=== PATIENT | male | born 2000 | race Caucasian/White ===

== ENCOUNTER 2018-02-03 23:02 | Emergency (ER) | payer OTHER ==
[2018-02-03 23:12] VITALS: BMI 23.5
--- NOTE | 2018-02-03 23:21 | PDOC ---
History of Present Illness - General History Source: Patient Exam Limitations: No Limitations - History of Present Illness Initial Comments: 02/04/18 00:13 Patient is a 17 year old male with no significant past medical history who presents to the ED with complaints of right arm pain that began earlier this evening. Patient reports being at work when he became angry, prompting him to punch a wall causing immediate pain. He reports experiencing associated symptoms of numbness in his second and third digit as, stating his arm feels weird up to the middle of his forearm. Patient reports experiencing associated symptoms of right sided abdominal pain that he states increased in intensity with inspiration, prompting him to come into the ED for further evaluation. As per patient's girlfriend, patient at [employer] recently after injuring his right arm. Denies chest pain, Sob. Denies nausea, vomiting. Denies contact with sick individuals, out of state travelling. Denies vision changes, head pain. Denies any other symptoms. Allergies: None Social history: Lives with parents. No smoking. No alcohol. No illicit drugs. Surgical history: None PMD: Not on staff <Yordan Foster - Last Filed: 02/04/18 00:13> <Amy Jaime - Last Filed: 02/04/18 20:49> - General Chief Complaint: Pain Stated Complaint: CHEST PAIN Time Seen by Provider: 02/03/18 23:20 Past History <Yordan Foster - Last Filed: 02/04/18 00:13> - Past Medical History COPD: No Other medical history: Pt denies - Suicide/Smoking/Psychosocial Hx Smoking History: Never smoked Have you smoked in the past 12 months: No Information on smoking cessation initiated: No Hx Alcohol Use: No Drug/Substance Use Hx: No Substance Use Type: None <Amy Jaime - Last Filed: 02/04/18 20:49> - Past Medical History Allergies/Adverse Reactions: Allergies Allergy/AdvReac Type Severity Reaction Status Date / Time No Known Allergies Allergy Verified 02/03/18 23:08 Review of Systems - Review of Systems Able to Perform ROS?: Yes Comments:: 02/04/18 00:13 GENERAL/CONSTITUTIONAL: No fever or chills. No weakness. HEAD, EYES, EARS, NOSE AND THROAT: No change in vision. No ear pain or discharge. No sore throat. CARDIOVASCULAR: No chest pain or shortness of breath. RESPIRATORY: No cough, wheezing, or hemoptysis. GASTROINTESTINAL: +Right sided abdominal pain. No nausea, vomiting, diarrhea or constipation. GENITOURINARY: No dysuria, frequency, or change in urination. MUSCULOSKELETAL: +Right sided hand pain. No joint or muscle swelling or pain. No neck or back pain. SKIN: No rash NEUROLOGIC: No headache, vertigo, loss of consciousness, or change in strength/ sensation. ENDOCRINE: No increased thirst. No abnormal weight change. HEMATOLOGIC/LYMPHATIC: No anemia, easy bleeding, or history of blood clots. ALLERGIC/IMMUNOLOGIC: No hives or skin allergy. <Yordan Foster - Last Filed: 02/04/18 00:13> *Physical Exam - Vital Signs Last Vital Signs Temp Pulse Resp BP Pulse Ox 98.4 F 104 H 20 141/86 98 02/03/18 23:09 02/03/18 23:09 02/03/18 23:09 02/03/18 23:09 02/03/18 23:09 - Physical Exam Comments: 02/04/18 00:15 GENERAL: Awake, alert, and fully oriented, in no acute distress HEAD: No signs of trauma EYES: PERRLA, EOMI, sclera anicteric, conjunctiva clear ENT: Auricles normal inspection, hearing grossly normal, nares patent, oropharynx clear without exudates. Moist mucosa NECK: Normal ROM, supple, no lymphadenopathy, JVD, or masses LUNGS: Breath sounds equal, clear to auscultation bilaterally. No wheezes, and no crackles HEART: Regular rate and rhythm, normal S1 and S2, no murmurs, rubs or gallops ABDOMEN: Soft, nontender, normoactive bowel sounds. No guarding, no rebound. No masses EXTREMITIES: +Right hand pain on palmar aspect proximal to second third digit with palpation. +Right flexion and extension with no pain. +Right hand lateral and medial movement with no pain. +Pronate and supinate arm with no pain. + Strength intact throughout. +Lumbrical all intact. Normal range of motion, no edema. No clubbing or cyanosis. No cords, erythema, or tenderness NEUROLOGICAL: +reflexes intact. Cranial nerves II through XII grossly intact. Normal speech, normal gait SKIN: Warm, Dry, normal turgor, no rashes or lesions noted. <Yordan Foster - Last Filed: 02/04/18 00:13> - Vital Signs Last Vital Signs Temp Pulse Resp BP Pulse Ox 98.4 F 104 H 20 141/86 98 02/03/18 23:09 02/03/18 23:09 02/03/18 23:09 02/03/18 23:09 02/03/18 23:09 <Amy Jaime - Last Filed: 02/04/18 20:49> Medical Decision Making - Medical Decision Making 02/04/18 20:49 Pt has no findings on XR of hand and XR of chest. He will be discharged home with a splint. <Amy Jaime - Last Filed: 02/04/18 20:49> *DC/Admit/Observation/Transfer - Attestations Scribe Attestion: 02/04/18 00:15 Documentation prepared by Yordan Foster, acting as emergency medical service coordinator for Amy Jaime MD. <Yordan Foster - Last Filed: 02/04/18 00:13> - Discharge Dispostion Decision to Admit order: No <Amy Jaime - Last Filed: 02/04/18 20:49> Diagnosis at time of Disposition: Hand sprain - Discharge Dispostion Disposition: HOME Condition at time of disposition: Stable - Referrals Referrals: ON STAFF,NOT [Primary Care Provider] - - Patient Instructions Printed Discharge Instructions: DI for Hand Injury
[2018-02-03] MEDS ORDERED: morphine CARPU-JECT 2 MG/1 ML DISP.SYRIN IVPUSH ONE (23:41)
[2018-02-04] MEDS ORDERED: MORPHINE SULFATE 2 MG/ML VIAL ONE (00:02)
[2018-02-04] MEDS ORDERED: IBUPROFEN 600 MG TABLET (FP) PO ONE ×2 (00:12→00:13)
[2018-02-04 00:55] VITALS: BP 117/71; PULSE 89; TEMP 99.2
--- NOTE | 2018-02-04 14:16 | EKG ---
Test Reason : Blood Pressure : / mmHG Vent. Rate : 081 BPM Atrial Rate : 081 BPM P-R Int : 126 ms QRS Dur : 094 ms QT Int : 354 ms P-R-T Axes : 071 082 054 degrees QTc Int : 411 ms NORMAL SINUS RHYTHM WITH SINUS ARRHYTHMIA NORMAL ECG NO PREVIOUS ECGS AVAILABLE Confirmed by Gurpreet Stevens ([id number]) on 02/04/2018 2:15:34 PM Referred By: Confirmed By:Gurpreet Stevens
== END 2018-02-04 00:45 | disposition home or self-care (01) ==
LOC: JER 23:02
PROC: 2W3CX1Z Immobilization of Right Lower Arm using Splint (ICD-10-PCS; principal; 2018-02-03)
DX: S63.591A Other specified sprain of right wrist, initial encounter (principal); W22.09XA Striking against other stationary object, initial encounter; Y93.89 Activity, other specified; Y92.59 Other trade areas as the place of occurrence of the external cause; Y99.0 Civilian activity done for income or pay
CPT/HCPCS: 71046-TC-FY; 73130-TC-RT-FY; 93005; 93010; 99282-25